=== PATIENT | male | born 1985 | race Caucasian/White ===

== ENCOUNTER 2016-08-29 16:02 | Emergency (ER) | payer OTHER ==
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
[2016-08-29 16:12] VITALS: TEMP 98.5; BMI 34.0
[2016-08-29] MEDS ORDERED: FAMOTIDINE 20 MG/50 ML IVPB 50 ML IVPB ONE ×2 (16:50→16:59)
[2016-08-29 16:56] LABS: BASOPHIL 1.6 % (0-2.0); EOSINOPHIL 4.5 % (0-4.5); MCH 25.9 pg (25.7-33.7); MCHC 32.1 g/dl (32.0-35.9); MEAN CELL VOLUME 80.7 fl (80-96); MEAN PLT VOLUME 9.1 fl (7.5-11.1); NEUTROPHILS 54.5 % (42.8-82.8); PLATELET COUNT 256 K/MM3 (134-434); RDW 12.9 % (11.9-15.9); WHITE BLOOD COUNT 8.7 K/mm3 (4.0-10.0)
[2016-08-29 17:05] LABS: URINE APPEARANCE Clear; URINE BILIRUBIN Negative (NEGATIVE); URINE BLOOD Negative (NEGATIVE); URINE GLUCOSE (UA) Negative (NEGATIVE); URINE KETONE Trace (NEGATIVE); URINE LEUK ESTERASE Negative (NEGATIVE); URINE NITRITE Negative (NEGATIVE); URINE PROTEIN Trace (NEGATIVE); URINE UROBILINOGEN 0.2 E.U/dl (0.2-1.0)
[2016-08-29 17:07] LABS: URINE COLOR YELLOW
[2016-08-29 17:08] LABS: ALBUMIN 4.4 g/dl (3.5-5.0); ALK PHOS 95 U/L (32-92); ANION GAP 11 (8-16); BILIRUBIN,TOTAL 0.9 mg/dl (0.2-1.0); CALCIUM 9.4 mg/dl (8.4-10.2); CO2 24 mmol/L (22-28); CREATININE 0.9 mg/dl (0.6-1.3); GLUCOSE,RANDOM 162 mg/dl (74-106); MAGNESIUM 1.9 mg/dL (1.8-2.4); PHOSPHOROUS 3.3 mg/dl (2.5-4.6); SGOT/AST 66 U/L (10-42); SGPT/ALT 123 U/L (10-40); TOT PROT 7.4 g/dl (6.4-8.3)
[2016-08-29 17:10] LABS: CPK(DFH) 274 IU/L (38-174)
[2016-08-29] MEDS ORDERED: SODIUM CHLORIDE 1,000 ML IV STA (17:10)
[2016-08-29 17:24] LABS: TROPONIN I (DFP) < 0.03 ng/ml (0.03-0.50)
[2016-08-29 17:51] LABS: CK MB 3.9 ng/ml (0.3-4.0)
[2016-08-29 19:21] VITALS: BP 128/77; PULSE 92
--- NOTE | 2016-08-29 19:26 | PDOC ---
*Physical Exam - Vital Signs Last Vital Signs Temp Pulse Resp BP Pulse Ox 98.5 F 92 H 20 128/77 100 08/29/16 16:04 08/29/16 19:20 08/29/16 19:20 08/29/16 19:20 08/29/16 19:20 Heart Score/ECG Review - History History: Slightly suspicious - Electrocardiogram EKG: Normal - Age Age: </= 45 - Risk Factors Risk Factors Heart Score: Yes Hx Hypertension Based on the list above the patient has:: 1-2 risk factors - Troponin Troponin: </= normal limit - Score Heart Score - Total: 1 ED Treatment Course - LABORATORY CBC & Chemistry Diagram: 08/29/16 16:30 08/29/16 16:30 - ADDITIONAL ORDERS Additional order review: Laboratory Results 08/29/16 08/29/16 08/29/16 17:03 16:30 16:30 D-Dimer < 200 Sodium Potassium Chloride Carbon Dioxide Anion Gap BUN Creatinine Creat Clearance w eGFR Random Glucose Calcium Phosphorus Magnesium Total Bilirubin AST ALT Alkaline Phosphatase Creatine Kinase CK-MB (CK-2) Cancelled CK-MB (CK-2) Rel Index Troponin I Total Protein Albumin Lipase Urine Color Yellow Urine Appearance Clear Urine pH 5.0 Ur Specific Guston >= 1.030 H Urine Protein Trace Urine Glucose (UA) Negative Urine Ketones Trace Urine Blood Negative Urine Nitrite Negative Urine Bilirubin Negative Urine Urobilinogen 0.2 e.u/dl Ur Leukocyte Esterase Negative 08/29/16 08/29/16 08/29/16 16:30 16:30 16:25 D-Dimer Sodium 138 Potassium 3.8 Chloride 103 Carbon Dioxide 24 Anion Gap 11 BUN 13 Creatinine 0.9 Creat Clearance w eGFR > 60 Random Glucose 162 H D Calcium 9.4 Phosphorus 3.3 Magnesium 1.9 Total Bilirubin 0.9 D AST 66 H ALT 123 H Alkaline Phosphatase 95 H Creatine Kinase 274 H D CK-MB (CK-2) 3.9 CK-MB (CK-2) Rel Index 1.4 Troponin I < 0.03 L Total Protein 7.4 Albumin 4.4 Lipase 33 Urine Color Urine Appearance Urine pH Ur Specific Guston Urine Protein Urine Glucose (UA) Urine Ketones Urine Blood Urine Nitrite Urine Bilirubin Urine Urobilinogen Ur Leukocyte Esterase 08/29/16 16:30 RBC 5.81 H MCV 80.7 MCHC 32.1 RDW 12.9 MPV 9.1 Neutrophils % 54.5 Lymphocytes % 32.3 Monocytes % 7.1 Eosinophils % 4.5 Basophils % 1.6 - Medications Given in the ED: ED Medications Discontinued Medications Generic Name Dose Route Start Last Admin Trade Name Brigitte PRN Reason Stop Dose Admin Famotidine/Sodium Chloride 50 mls @ 100 mls/hr 08/29/16 16:50 08/29/16 17:02 Pepcid 20 Mg Premixed Ivpb - IVPB 08/29/16 17:19 100 mls/hr ONCE ONE Administration Sodium Chloride 1,000 mls @ 1,000 mls/hr 08/29/16 17:10 08/29/16 17:22 Normal Saline - IV 08/29/16 18:09 1,000 mls/hr ASDIR STA Administration Progress Note - Progress Note Progress Note: This is a 30-year-old male who comes in complaining of some anterior chest pain. Patient has risk factors of hypertension otherwise denies any other risk factors. Patient's heart score is 1. Patient will have a second troponin done at 10 PM. If this troponin is also negative he will be discharged with an overall acute coronary syndrome risk of less than 1%. Patient's second troponin was negative. Patient discharged home will follow-up with his primary care doctor and get an outpatient stress test. *DC/Admit/Observation/Transfer Diagnosis at time of Disposition: Chest pain - Discharge Dispostion Disposition: HOME Condition at time of disposition: Fair Admit: No - Patient Instructions Printed Discharge Instructions: DI for Atypical Chest Pain Additional Instructions: Follow-up with your primary care doctor to make sure you schedule a cardiac stress test.. Tylenol or Motrin as needed for pain Return to the emergency department immediately with ANY new, persistent or worsening symptoms. Continue any medications as previously prescribed by your physician. You should follow up with your primary doctor as soon as possible regarding today's emergency department visit. . Please make sure your doctor reviews the results of your emergency evaluation. Thank you for coming to the Emergency Department today for your care. It was a pleasure to see you today. Please note that your evaluation is INCOMPLETE until you follow-up with your doctor.
[2016-08-29 20:31] LABS: CPK(DFH) 253 IU/L (38-174)
[2016-08-29 20:53] LABS: TROPONIN I (DFP) < 0.03 ng/ml (0.03-0.50)
[2016-08-29 20:56] LABS: CK MB 3.4 ng/ml (0.3-4.0)
--- NOTE | 2016-08-30 09:57 | EKG ---
Test Reason : Blood Pressure : / mmHG Vent. Rate : 113 BPM Atrial Rate : 113 BPM P-R Int : 154 ms QRS Dur : 092 ms QT Int : 344 ms P-R-T Axes : 028 -07 019 degrees QTc Int : 471 ms SINUS TACHYCARDIA POSSIBLE LEFT ATRIAL ENLARGEMENT MINIMAL VOLTAGE CRITERIA FOR LVH, MAY BE NORMAL VARIANT BORDERLINE ECG NO PREVIOUS ECGS AVAILABLE Confirmed by PAN HOFFMAN MD ([id number]) on 08/30/2016 9:57:17 AM Referred By: MD MCCARTHY Confirmed By:PAN HOFFMAN MD
== END 2016-08-29 21:16 | disposition home or self-care (01) ==
LOC: FER 16:02
DX: R07.9 Chest pain, unspecified (principal); J45.909 Unspecified asthma, uncomplicated; I10 Essential (primary) hypertension; E66.01 Morbid (severe) obesity due to excess calories; Z68.35 Body mass index [BMI] 35.0-35.9, adult
CPT/HCPCS: 36415; 71010-TC; 80053; 81003; 82550; 82553; 83690; 83735; 84100; 84443; 84484; 85025; 85379; 93005; 99283-25

== ENCOUNTER 2016-08-30 11:50 | Emergency (ER) | payer OTHER ==
[2016-08-30 11:57] VITALS: BMI 38.4
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
[2016-08-30 13:44] VITALS: BP 128/74; PULSE 70; TEMP 98.6
--- NOTE | 2016-08-30 22:55 | EKG ---
Test Reason : Blood Pressure : / mmHG Vent. Rate : 074 BPM Atrial Rate : 074 BPM P-R Int : 136 ms QRS Dur : 090 ms QT Int : 380 ms P-R-T Axes : 023 -02 025 degrees QTc Int : 421 ms NORMAL SINUS RHYTHM WITH SINUS ARRHYTHMIA NORMAL ECG WHEN COMPARED WITH ECG OF 29-AUG-2016 16:16, VENT. RATE HAS DECREASED BY 39 BPM Confirmed by RENE GUERIN MD ([id number]) on 08/30/2016 10:55:15 PM Referred By: Confirmed By:RENE GUERIN MD
== END 2016-08-30 13:25 | disposition home or self-care (01) ==
LOC: JER 11:50
DX: F41.9 Anxiety disorder, unspecified (principal); J45.909 Unspecified asthma, uncomplicated; I10 Essential (primary) hypertension
CPT/HCPCS: 93005; 93010; 99284-25

== ENCOUNTER 2016-09-06 21:07 | Emergency (ER) | payer OTHER ==
[2016-09-06 21:13] VITALS: BP 123/80; PULSE 80; TEMP 98.1; BMI 38.4
--- NOTE | 2016-09-06 21:15 | PDOC ---
History of Present Illness - General History Source: Patient Exam Limitations: No Limitations - History of Present Illness Initial Comments: 09/06/16 21:28 The patient is a 30 year old male, with significant past medical history of anxiety, asthma, HTN, who presents today seeking a refill of Wellbutrin. The patient states that he ran out of Wellbutrin about 1 month ago. The patient spoke with his therapist today who agrees that he can start taking Wellbutrin for his anxiety again. He has an appointment with his therapist on Sunday, but would like a prescription to hold him over until then. The patient also complains of an ear infection for which he is already taking amoxicillin for. Denies fever, chills, nausea, vomiting. Denies chest pain, SOB, cough. Allergies: None reported ROS General: No fevers or chills, no weakness, no weight loss HEENT: +left ear pain. No change in vision. No sore throat,. No ear pain CardioVascular: No chest pain or shortness of breath Respiratory:No cough, or wheezing. Gastrointestinal: no nausea, vomiting, diarrhea or constipation, No rectal bleeding Genitourinary: No dysuria, hematuria, or frequency Musculoskeletal: No joint or muscle pain or swelling Neurologic: No headache, vertigo, dizziness or loss of consciousness Psychiatric: +anxiety Skin: No rashes or easy bruising Endocrine: no increased thirst or abnormal weight change Allergic: no skin or latex allergy All other systems reviewed and normal PE GENERAL: The patient is awake, alert, and fully oriented, in no acute distress. EYES: Pupils equal, round and reactive to light, extraocular movements intact, sclera anicteric, conjunctiva clear. LEFT EAR: Tympanic membrane normal. Excess cerumen in the external canal. EXTREMITIES: Normal range of motion, no edema. NEUROLOGICAL: Normal speech, normal gait. PSYCH: Normal mood, normal affect. SKIN: Warm, Dry, normal turgor, no rashes or lesions noted. <Blossom Bonilla - Last Filed: 09/06/16 21:28> - General History Source: Patient Exam Limitations: No Limitations - History of Present Illness Initial Comments: 09/06/16 21:22 A portion of this note was documented by scribe services under my direction. I have reviewed the details of the note, within reason, and agree with the documentation. The case summary and management plan written by me. Assessment and plan: This is a 30-year-old male with a history of anxiety who has had 3 visits in the last several days for anxiety related type complaints. Patient decided he should go back on his Wellbutrin today however he is out of the medication so he came in for a prescription for the Wellbutrin. Patient has not taken it in approximately 1 week and does have an appointment with his therapist for Sunday. Patient was told by his therapist he most likely should be started Wellbutrin secondary to his anxiety attacks. <Salvatore Childress I - Last Filed: 09/06/16 22:04> - General Chief Complaint: RX Refill Stated Complaint: MED REFILL Time Seen by Provider: 09/06/16 21:10 Past History <Blossom Bonilla - Last Filed: 09/06/16 21:28> - Past Medical History Asthma: Yes (childhood) HTN: Yes Suicide Attempt (Hx): No - Immunization History Immunization Up to Date: Yes - Psycho/Social/Smoking Cessation Hx Anxiety: No Suicidal Ideation: No Smoking History: Never smoked Have you smoked in the past 12 months: No Hx Alcohol Use: No Drug/Substance Use Hx: No Substance Use Type: None <Salvatore Childress I - Last Filed: 09/06/16 22:04> - Past Medical History Allergies/Adverse Reactions: Allergies Allergy/AdvReac Type Severity Reaction Status Date / Time No Known Allergies Allergy Verified 09/06/16 21:09 Home Medications: Ambulatory Orders Oxycodone HCl [Oxycodone HCl ER] 15 mg PO ASDIR PRN 05/25/16 Bupropion HCl [Wellbutrin -] 75 mg PO DAILY 09/06/16 Bupropion HCl [Wellbutrin -] 75 mg PO DAILY #7 tablet 09/06/16 Gabapentin 0 mg PO DAILY 09/06/16 Trazodone HCl 0 mg PO HS 09/06/16 *Physical Exam - Vital Signs Last Vital Signs Temp Pulse Resp BP Pulse Ox 98.1 F 80 16 123/80 100 09/06/16 21:07 09/06/16 21:07 09/06/16 21:07 09/06/16 21:07 09/06/16 21:07 <Blossom Bonilla - Last Filed: 09/06/16 21:28> *DC/Admit/Observation/Transfer - Attestations Scribe Attestion: 09/06/16 21:30 Documentation prepared by XENA Tamayo, acting as medical record transcriber for Salvatore Childress MD. <Blossom Bonilla - Last Filed: 09/06/16 21:28> - Discharge Dispostion Admit: No <Salvatore Childress I - Last Filed: 09/06/16 22:04> Diagnosis at time of Disposition: Medication refill - Discharge Dispostion Disposition: HOME Condition at time of disposition: Stable - Prescriptions Prescriptions: Bupropion HCl [Wellbutrin -] 75 mg PO DAILY #7 tablet - Patient Instructions Additional Instructions: Get the prescription for Wellbutrin filled and take as directed. Make sure you keep your appointment with your therapist on Sunday Return to the emergency department immediately with ANY new, persistent or worsening symptoms. Continue any medications as previously prescribed by your physician. You should follow up with your primary doctor as soon as possible regarding today's emergency department visit. . Please make sure your doctor reviews the results of your emergency evaluation. Thank you for coming to the Emergency Department today for your care. It was a pleasure to see you today. Please note that your evaluation is INCOMPLETE until you follow-up with your doctor.
== END 2016-09-06 21:28 | disposition home or self-care (01) ==
LOC: FER 21:07
DX: Z76.0 Encounter for issue of repeat prescription (principal); I10 Essential (primary) hypertension; J45.909 Unspecified asthma, uncomplicated
CPT/HCPCS: 99281-25

== ENCOUNTER 2016-09-07 14:52 | Emergency (ER) | payer OTHER ==
[2016-09-07 15:07] VITALS: BP 136/87; PULSE 98; TEMP 98; BMI 38.3
--- NOTE | 2016-09-07 15:22 | PDOC ---
History of Present Illness - General Chief Complaint: Palpitations Stated Complaint: PALPITATIONS Time Seen by Provider: 09/07/16 14:56 - History of Present Illness Initial Comments: 09/07/16 15:15 Chief complaint: Pain left shoulder and left upper back History of present illness: Patient states he was putting away some boxes in his cupboard today, felt a tightness in his left shoulder and left upper back, he states that he has a pinched nerve in his neck for 2 years with intermittent pain in the same areas and in his left arm. He is on disability for this condition which was subsequent to an injury. There has been no recent trauma. He also has a history of anxiety, and feels considerable stress due to taking care of 2 children at home, the older of which has behavioral problems and is in the process of seeking therapy. Review of systems: Admits "palpitations" after feeling the initial pain, these have resolved as well. Remainder systems review is negative Past medical history: The patient had a cardiology evaluation and stress test within the last week which he reports were negative. He has mild hypertension but is on no antihypertensive. There are no other risk factors. Physical exam: Alert and oriented 3 well-developed well-nourished no acute distress cheerful and cooperative. No pain at present. Afebrile, vital signs normal PERRLA, fundi benign, ENT clear Neck supple without bruit mass or nodes. No point tenderness or deformity. Good range of motion without pain Lungs clear No chest wall or rib cage tenderness or deformity, although there is trigger point tenderness along the left lateral scapular border CV S1 and S2 normal without murmur or gallop pulses full and symmetric no JVD or edema Abdomen benign Neurological intact Impression: Exacerbation of cervical radiculopathy, anxiety, no suggestion of cardiac etiology, no suggestion of pulmonary etiology. Recent ER and cardiology evaluations including stress test reportedly negative Plan: Repeat EKG. Further recommendations depending on results. Past History - Past Medical History Allergies/Adverse Reactions: Allergies Allergy/AdvReac Type Severity Reaction Status Date / Time No Known Allergies Allergy Verified 09/06/16 21:09 Home Medications: Ambulatory Orders Oxycodone HCl [Oxycodone HCl ER] 15 mg PO ASDIR PRN 05/25/16 Gabapentin 0 mg PO DAILY 09/06/16 Aspirin [Aspirin EC] 81 mg PO ONCE 09/07/16 Bupropion HCl [Wellbutrin -] 75 mg PO DAILY #7 tablet 09/07/16 Cyclobenzaprine HCl [Flexeril -] 10 mg PO TID PRN 09/07/16 Asthma: Yes (childhood) HTN: Yes Psychiatric Problems: Yes Suicide Attempt (Hx): No Other medical history: BACK PAIN - Immunization History Immunization Up to Date: Yes - Psycho/Social/Smoking Cessation Hx Anxiety: Yes Suicidal Ideation: No Smoking History: Never smoked Have you smoked in the past 12 months: No Hx Alcohol Use: No Drug/Substance Use Hx: No Substance Use Type: None *Physical Exam - Vital Signs Last Vital Signs Temp Pulse Resp BP Pulse Ox 98.0 F 98 H 18 136/87 98 09/07/16 14:53 09/07/16 14:53 09/07/16 14:53 09/07/16 14:53 09/07/16 14:53 Medical Decision Making - Medical Decision Making 09/07/16 15:22 EKG: Mild sinus tachycardia 101 bpm. Normal axes and intervals. No ST-T wave changes. Otherwise normal EKG 09/07/16 15:37 Patient requests refill of his Wellbutrin 75 mg daily. A referral that was given last night did not transmit to the pharmacy. Attempts to be transmit the original order were not successful. Therefore a new prescription was sent today for 7 day supply. Patient is asymptomatic and fully ambulatory, in no pain or other distress upon discharge with family member to follow-up as needed with his primary physician and public health analyst. *DC/Admit/Observation/Transfer Diagnosis at time of Disposition: Musculoskeletal pain, Anxiety - Discharge Dispostion Disposition: HOME Condition at time of disposition: Stable Admit: No - Prescriptions Prescriptions: Bupropion HCl [Wellbutrin -] 75 mg PO DAILY #7 tablet - Referrals Referrals: Aimee Prado MD [Primary Care Provider] - 24 hours - Patient Instructions Printed Discharge Instructions: DI for Lumbar Radiculopathy, DI for Anxiety -- Adult Additional Instructions: Your EKG and physical exam are normal today. Your symptoms are most likely due to your pinched nerve and to stress/anxiety. Take your medication as directed. Consider relaxation techniques and stress counseling. If your pain is worse or you develop any other symptoms return to the ER or see your primary physician immediately
--- NOTE | 2016-09-08 11:11 | EKG ---
Test Reason : Blood Pressure : / mmHG Vent. Rate : 101 BPM Atrial Rate : 101 BPM P-R Int : 154 ms QRS Dur : 090 ms QT Int : 352 ms P-R-T Axes : 021 -10 017 degrees QTc Int : 456 ms SINUS TACHYCARDIA POOR R WAVE PROGRESSION WHEN COMPARED WITH ECG OF 30-AUG-2016 11:56, NO SIGNIFICANT CHANGE WAS FOUND Confirmed by SHANTI TAI MD ([id number]) on 09/08/2016 11:11:21 AM Referred By: Marlon ELI Confirmed By:SHANTI TAI MD
== END 2016-09-07 15:40 | disposition home or self-care (01) ==
LOC: FER 14:52
DX: M79.1 Myalgia (principal); F41.9 Anxiety disorder, unspecified; F99 Mental disorder, not otherwise specified; I10 Essential (primary) hypertension; J45.909 Unspecified asthma, uncomplicated
CPT/HCPCS: 93005; 99284-25

== ENCOUNTER 2016-09-15 22:35 | Emergency (ER) | payer OTHER ==
--- NOTE | 2016-09-15 22:58 | PDOC ---
History of Present Illness - General Chief Complaint: Chest Pain Stated Complaint: CHEST TIGHTNESS Time Seen by Provider: 09/15/16 22:39 History Source: Patient, Old Records Exam Limitations: No Limitations - History of Present Illness Initial Comments: 09/15/16 22:53 30 Y M anxiety, "pinched nerve in neck" multiple visit s to er for different complaints. has been seen by ENT yesterday and had prior stress test for his symptoms. comes to er w. sensation of something in his throat for which his ent told him today it was his tonsils. also c/o lt sided chest pain "muscle tightness" which he has had before and was told it was a pinched nerve. pt sts "i know is the same as before but i got nervous" no sob, n/v. no palpitations. in nad. Past History - Past Medical History Allergies/Adverse Reactions: Allergies Allergy/AdvReac Type Severity Reaction Status Date / Time No Known Allergies Allergy Verified 09/06/16 21:09 Home Medications: Ambulatory Orders Oxycodone HCl [Oxycodone HCl ER] 15 mg PO ASDIR PRN 05/25/16 Gabapentin 0 mg PO DAILY 09/06/16 Aspirin [Aspirin EC] 81 mg PO ONCE 09/07/16 Bupropion HCl [Wellbutrin -] 75 mg PO DAILY #7 tablet 09/07/16 Cyclobenzaprine HCl [Flexeril -] 10 mg PO TID PRN 09/07/16 Asthma: Yes (childhood) HTN: Yes Psychiatric Problems: Yes Suicide Attempt (Hx): No - Immunization History Immunization Up to Date: Yes - Psycho/Social/Smoking Cessation Hx Anxiety: Yes Suicidal Ideation: No Smoking History: Never smoked Have you smoked in the past 12 months: No Hx Alcohol Use: No Drug/Substance Use Hx: No Substance Use Type: None Review of Systems - Review of Systems Able to Perform ROS?: Yes Is the patient limited Palauan proficient: No Constitutional: Yes: Symptoms Reported, See HPI HEENTM: Yes: Symptoms Reported, See HPI Respiratory: No: Symptoms reported Cardiac (ROS): No: Symptoms Reported ABD/GI: No: Symptoms Reported Musculoskeletal: Yes: Symptoms Reported, See HPI Psychiatric: Yes: Anxiety All Other Systems: Reviewed and Negative *Physical Exam - Physical Exam General Appearance: Yes: Nourished, Appropriately Dressed. No: Apparent Distress Neck: positive: Supple Respiratory/Chest: negative: Respiratory Distress Cardiovascular: positive: Regular Rhythm, Regular Rate Extremity: positive: Normal Capillary Refill, Normal Range of Motion Integumentary: positive: Normal Color Neurologic: positive: Fully Oriented, Alert, Normal Mood/Affect, Normal Response , Motor Strength 5/5 *DC/Admit/Observation/Transfer Diagnosis at time of Disposition: Anxiety - Discharge Dispostion Disposition: HOME Condition at time of disposition: Good - Referrals Referrals: Aimee Prado MD [Primary Care Provider] - Call tomorrow - Patient Instructions Additional Instructions: see your psychiatrist sunday relaxation techniques as instructed return if new symptoms
[2016-09-15 23:13] VITALS: BP 140/93; PULSE 86; TEMP 98; BMI 38.3
[2016-09-27] MEDS ORDERED: RANITIDINE HCL 150 MG TABLET (FP) ONE (21:05)
[2016-09-27] MEDS ORDERED: MAG HYDROX/AL HYDROX/SIMETH 30 ML UNIT-DOSE CUP ONE (21:05)
== END 2016-09-15 23:07 | disposition home or self-care (01) ==
LOC: FER 22:35
DX: F41.9 Anxiety disorder, unspecified (principal); I10 Essential (primary) hypertension; J45.909 Unspecified asthma, uncomplicated; F99 Mental disorder, not otherwise specified
CPT/HCPCS: 99281-25

== ENCOUNTER 2016-09-20 04:46 | Emergency (ER) | payer OTHER ==
--- NOTE | 2016-09-20 04:52 | PDOC ---
History of Present Illness - General Chief Complaint: Pain, Acute Stated Complaint: LEFT GROIN PAIN Time Seen by Provider: 09/20/16 04:47 History Source: Patient, Old Records Exam Limitations: No Limitations - History of Present Illness Initial Comments: 09/20/16 04:47 30 Y M multiple visits to er, presents today c/o inguinal pain. sts has a hernia but has not gotten it fixed. no fever, n/v. no abd pain. has not taken pain medications. in the ed, in nad. Past History - Past Medical History Allergies/Adverse Reactions: Allergies Allergy/AdvReac Type Severity Reaction Status Date / Time No Known Allergies Allergy Verified 09/20/16 04:47 Home Medications: Ambulatory Orders Oxycodone HCl [Oxycodone HCl ER] 15 mg PO ASDIR PRN 05/25/16 Gabapentin 0 mg PO DAILY 09/06/16 Aspirin [Aspirin EC] 81 mg PO ONCE 09/07/16 Bupropion HCl [Wellbutrin -] 75 mg PO DAILY #7 tablet 09/07/16 Cyclobenzaprine HCl [Flexeril -] 10 mg PO TID PRN 09/07/16 Asthma: Yes (childhood) HTN: Yes Psychiatric Problems: Yes Suicide Attempt (Hx): No - Immunization History Immunization Up to Date: Yes - Psycho/Social/Smoking Cessation Hx Anxiety: Yes Suicidal Ideation: No Smoking History: Never smoked Have you smoked in the past 12 months: No Hx Alcohol Use: No Drug/Substance Use Hx: No Substance Use Type: None Review of Systems - Review of Systems Able to Perform ROS?: Yes Is the patient limited Khmer proficient: No Constitutional: No: Symptoms Reported HEENTM: No: Symptoms Reported Respiratory: No: Symptoms reported Cardiac (ROS): No: Symptoms Reported ABD/GI: Yes: Symptoms Reported, See HPI : No: Symptoms Reported Musculoskeletal: No: Symptoms Reported Integumentary: No: Symptoms Reported *Physical Exam - Physical Exam General Appearance: Yes: Nourished, Appropriately Dressed. No: Apparent Distress Respiratory/Chest: positive: Lungs Clear, Normal Breath Sounds. negative: Respiratory Distress Cardiovascular: positive: Regular Rhythm, Regular Rate Gastrointestinal/Abdominal: positive: Normal Bowel Sounds, Soft, Hernia (lt inguinal hernia in scrotum not incarcerated. not tender. no erythema). negative: Tender Male Genitalia: positive: normal genitalia, hernia (see above) Musculoskeletal: positive: Normal Inspection Integumentary: positive: Normal Color Neurologic: positive: Fully Oriented, Alert, Normal Mood/Affect, Normal Response , Motor Strength 5/5 *DC/Admit/Observation/Transfer Diagnosis at time of Disposition: Hernia - Discharge Dispostion Disposition: HOME Condition at time of disposition: Stable - Patient Instructions Additional Instructions: IBUPROFEN FOR PAIN CALL YOUR DOCTOR FOR APPOINTMENT RETURN IF VOMITING OR SEVERE PAIN
[2016-09-20 04:54] VITALS: BP 141/96; PULSE 76; TEMP 97.8; BMI 34.0
== END 2016-09-20 04:58 | disposition home or self-care (01) ==
LOC: FER 04:46
DX: K46.9 Unspecified abdominal hernia without obstruction or gangrene (principal); I10 Essential (primary) hypertension; J45.909 Unspecified asthma, uncomplicated; F99 Mental disorder, not otherwise specified; Z79.82 Long term (current) use of aspirin
CPT/HCPCS: 99281-25

== ENCOUNTER 2016-09-27 20:46 | Emergency (ER) | payer OTHER ==
[2016-09-27] MEDS ORDERED: RANITIDINE HCL 150 MG TABLET (FP) PO ONE (21:03)
[2016-09-27] MEDS ORDERED: MAG HYDROX/AL HYDROX/SIMETH 30 ML UNIT-DOSE CUP PO ONE (21:03)
--- NOTE | 2016-09-27 21:05 | PDOC ---
History of Present Illness <Harley Limon - Last Filed: 09/27/16 21:09> - History of Present Illness Initial Comments: 09/27/16 21:07 - History of Present Illness Initial Comments: 09/27/16 21:06 The patient is a 30 year old male, with a significant past medical history of anxiety, asthma, and HTN, herniated lumbar disc (s/p recent fall), shoulder tear and knee tear (s/p recent fall) who presents to the emergency department with feeling of reflux after eating pasta and sausage and peppers. The patient reports having a chest pressure after eating pasta with peppers, just prior to ER arrival. He describes the pressure as a gassy feeling and having urges to burp without being able to burp. He felt like the food was "going up and down", and then did have some relief after burping He denies any recent fevers, chills, headache or dizziness. He denies any recent abdominal pain, nausea, vomit, diarrhea or constipation. He denies any recent shortness of breath. He denies any recent dysuria, frequency, urgency or hematuria. He denies any other complaints at this time, and the remainder of the review of systems is negative Allergies: NKDA Past surgical history: denies Social History: Nonsmoker. <Harley Limon - Last Filed: 09/27/16 21:06> 09/27/16 21:07 <Leah Davis - Last Filed: 09/27/16 21:55> - General Chief Complaint: Pain Stated Complaint: FEELS LIKE ACID REFLUS AFTER EATING PASTA Time Seen by Provider: 09/27/16 20:52 Past History <Harley Limon - Last Filed: 09/27/16 21:09> - Past Medical History Asthma: Yes (childhood) HTN: Yes Psychiatric Problems: Yes Suicide Attempt (Hx): No Other medical history: CHRONIC BACK PAIN AND PINCHED NERVE - Immunization History Immunization Up to Date: Yes - Psycho/Social/Smoking Cessation Hx Anxiety: Yes Suicidal Ideation: No Smoking History: Never smoked Have you smoked in the past 12 months: No Information on smoking cessation initiated: No Hx Alcohol Use: No Drug/Substance Use Hx: No Substance Use Type: None <Leah Davis - Last Filed: 09/27/16 21:55> - Past Medical History Allergies/Adverse Reactions: Allergies Allergy/AdvReac Type Severity Reaction Status Date / Time No Known Allergies Allergy Verified 09/27/16 20:49 Home Medications: Ambulatory Orders Oxycodone HCl [Oxycodone HCl ER] 15 mg PO ASDIR PRN 05/25/16 Gabapentin 300 mg PO DAILY 09/06/16 Aspirin [Aspirin EC] 81 mg PO ONCE 09/07/16 *Physical Exam - Vital Signs Last Vital Signs Temp Pulse Resp BP Pulse Ox 98.7 F 88 18 145/88 99 09/27/16 20:50 09/27/16 20:50 09/27/16 20:50 09/27/16 20:50 09/27/16 20:50 <Harley Limon - Last Filed: 09/27/16 21:09> - Vital Signs Last Vital Signs Temp Pulse Resp BP Pulse Ox 98.7 F 88 18 145/88 99 09/27/16 20:50 09/27/16 20:50 09/27/16 20:50 09/27/16 20:50 09/27/16 20:50 - Physical Exam Comments: 09/27/16 21:04 Physical exam Last Vital Signs Temp Pulse Resp BP Pulse Ox 98.7 F 88 18 145/88 99 09/27/16 20:50 09/27/16 20:50 09/27/16 20:50 09/27/16 20:50 09/27/16 20:50 GENERAL: The patient is awake, alert, and fully oriented, and in no apparent distress. HEAD: Normal with no signs of trauma. EYES: Sclera anicteric, conjunctiva normal ENT:Moist mucous membranes. NECK: Normal range of motion, supple LUNGS: Breath sounds equal, clear to auscultation bilaterally. No wheezes, and no crackles. HEART: Regular rate and rhythm, normal S1 and S2 without murmur, rub or gallop. CHEST WALL: Mild tenderness to palpation to will ABDOMEN: Soft, nontender, normoactive bowel sounds. No guarding, no rebound. No masses appreciated. EXTREMITIES: Normal range of motion, no edema. No clubbing or cyanosis. No cords, erythema, or tenderness. NEUROLOGICAL: Cranial nerves II through XII grossly intact. Normal speech, normal gait. PSYCH: Normal mood, normal affect. SKIN: Warm, Dry, normal turgor, no rashes or lesions noted. <Leah Davis - Last Filed: 09/27/16 21:55> ED Treatment Course - RADIOLOGY Radiology Studies Ordered: Category Date Time Status CHEST PA & LAT [RAD] Stat Radiology 09/27/16 21:03 Ordered <Leah Davis - Last Filed: 09/27/16 21:55> Medical Decision Making - Medical Decision Making 09/27/16 21:53 30-year-old male with GERD sounding symptoms after eating pasta and fried sausage and peppers He is also morbidly obese Patient feeling much better after Maalox and Zantac Chest [id number] sinus rhythm 71 normal axis Normal AV and IV conduction time Normal QTC Normal EKG Chest x-ray PA and lateral-NAD Impression-GERD <Leah Davis - Last Filed: 09/27/16 21:55> *DC/Admit/Observation/Transfer <Harley Limon - Last Filed: 09/27/16 21:09> <Leah Davis - Last Filed: 09/27/16 21:55> Diagnosis at time of Disposition: Gastroesophageal reflux disease - Discharge Dispostion Disposition: HOME Condition at time of disposition: Improved - Patient Instructions Printed Discharge Instructions: DI for Gastroesophageal Reflux Disease (GERD), GERD Diet, Heartburn -- Overview Additional Instructions: Do not eat fried, greasy, or spicy foods Pepcid or Zantac [id number]-you can take one pill twice a day Maalox if needed when you are symptomatic Followup with your primary care physician in 24-48 hours Return immediately if you worsen in any way Take your medications as directed
[2016-09-27 21:49] VITALS: BP 145/88; PULSE 88; TEMP 98.7; BMI 35.4
--- NOTE | 2016-09-28 18:09 | EKG ---
Test Reason : Blood Pressure : / mmHG Vent. Rate : 071 BPM Atrial Rate : 071 BPM P-R Int : 154 ms QRS Dur : 102 ms QT Int : 386 ms P-R-T Axes : 030 -09 025 degrees QTc Int : 419 ms NORMAL SINUS RHYTHM NON-SPECIFIC INTRA-VENTRICULAR CONDUCTION BLOCK WHEN COMPARED WITH ECG OF 27-SEP-2016 21:24, NO SIGNIFICANT CHANGE WAS FOUND Confirmed by MD GODWIN MARJORY ([id number]) on 09/28/2016 6:08:58 PM Referred By: MD STARR Confirmed By:ANABELLA GODWIN MD
--- NOTE | 2016-09-28 18:09 | EKG ---
Test Reason : Blood Pressure : / mmHG Vent. Rate : 071 BPM Atrial Rate : 071 BPM P-R Int : 140 ms QRS Dur : 102 ms QT Int : 384 ms P-R-T Axes : 024 -06 026 degrees QTc Int : 417 ms NORMAL SINUS RHYTHM NON-SPECIFIC INTRA-VENTRICULAR CONDUCTION BLOCK WHEN COMPARED WITH ECG OF 07-SEP-2016 15:20, NO SIGNIFICANT CHANGE WAS FOUND Confirmed by MD GODWIN MARJORY ([id number]) on 09/28/2016 6:09:11 PM Referred By: MD STARR Confirmed By:ANABELLA GODWIN MD
== END 2016-09-27 22:23 | disposition home or self-care (01) ==
LOC: FER 20:46
DX: K21.9 Gastro-esophageal reflux disease without esophagitis (principal); F41.9 Anxiety disorder, unspecified; J45.909 Unspecified asthma, uncomplicated; I10 Essential (primary) hypertension; M51.86 Other intervertebral disc disorders, lumbar region
CPT/HCPCS: 71020-TC; 93005; 93010; 99282-25

== ENCOUNTER 2017-02-22 12:49 | Emergency (ER) | payer OTHER ==
--- NOTE | 2017-02-22 12:57 | PDOC ---
Attending Attestation - Resident Resident Name: Hernán Espinozaorn - ED Attending Attestation I have performed the following: I have examined & evaluated the patient, The case was reviewed & discussed with the resident, I agree w/resident's findings & plan, Exceptions are as noted - HPI HPI: 02/22/17 14:48 Chronic pain for 1-2 years as a result of falling on ice. Numerous MRIs in the past. Physical therapy and pain management. Seen today because of new pain in the left anterior shoulder, mild but recurrent, present only with certain movements - Physicial Exam PE: 02/22/17 14:49 Physical exam including complete neurologic including cardiac /respiratory without significant abnormalities. Reproducible pain with palpation of the anterior shoulder, specifically the coracoid. This probably represents a mild tendinitis. - Medical Decision Making 02/22/17 14:52 Assessment is musculoskeletal pain acute superimposed on chronic. Although the acute time frame is 3 months. Discussed pain management options, the desirability of staying as active as possible, and the patient will follow up with his primary physician. Fully ambulatory, cheerful and in no significant pain or other distress upon discharge to follow-up as directed.
[2017-02-22 13:15] VITALS: BP 131/87; PULSE 72; TEMP 98.2; BMI 32.5
--- NOTE | 2017-02-22 13:58 | PDOC ---
History of Present Illness - General Chief Complaint: Pain Stated Complaint: PAIN TO UPPER LEFT CHEST WALL ON PALPATION Time Seen by Provider: 02/22/17 12:56 - History of Present Illness Initial Comments: 02/22/17 14:47 See resident note Past History - Past Medical History Allergies/Adverse Reactions: Allergies Allergy/AdvReac Type Severity Reaction Status Date / Time No Known Allergies Allergy Verified 09/27/16 20:49 Home Medications: Ambulatory Orders Oxycodone HCl [Oxycodone HCl ER] 15 mg PO ASDIR PRN 05/25/16 Gabapentin 300 mg PO DAILY 09/06/16 Asthma: Yes (childhood) HTN: No Psychiatric Problems: Yes (DEPRESSION) Suicide Attempt (Hx): No Other medical history: CARPAL TUNNEL - Immunization History Immunization Up to Date: Yes - Psycho/Social/Smoking Cessation Hx Anxiety: Yes Suicidal Ideation: No Smoking History: Never smoked Have you smoked in the past 12 months: No Information on smoking cessation initiated: No Hx Alcohol Use: No Drug/Substance Use Hx: No Substance Use Type: None *Physical Exam - Vital Signs Last Vital Signs Temp Pulse Resp BP Pulse Ox 98.2 F 72 16 131/87 99 02/22/17 12:52 02/22/17 12:52 02/22/17 12:52 02/22/17 12:52 02/22/17 12:52 *DC/Admit/Observation/Transfer Diagnosis at time of Disposition: Musculoskeletal pain - Discharge Dispostion Disposition: HOME Condition at time of disposition: Stable Admit: No - Referrals Referrals: Feliz Jones MD [Staff Physician] - - Patient Instructions Printed Discharge Instructions: DI for Musculoskeletal Pain
--- NOTE | 2017-02-22 14:06 | PDOC ---
History of Present Illness - General Chief Complaint: Pain Stated Complaint: PAIN TO UPPER LEFT CHEST WALL ON PALPATION Time Seen by Provider: 02/22/17 12:56 - History of Present Illness Initial Comments: 02/22/17 14:01 Mr. Kidd is a 31 year old male with a reported significant past medical history of ruptured lumbar discs x2, L wrist carpal tunnel, R knee tear, L shoulder tear, and L arm nerve pain all resulting from a fall on ice in 2014. He presents to the emergency department with a several month history of pain from these injuries as well as throat discomfort for which he has seen ENT and requested to follow-up. The patient denies chest pain, shortness of breath, headache and dizziness. Denies fever, chills, nausea, vomit, diarrhea and constipation. Denies dysuria, frequency, urgency and hematuria. Allergies: NKDA Past surgical history: Groin hernia repair Social history: Denies alcohol / tobacco / illicit drug use PMD - Dr. Mone Prado Past History - Past Medical History Allergies/Adverse Reactions: Allergies Allergy/AdvReac Type Severity Reaction Status Date / Time No Known Allergies Allergy Verified 09/27/16 20:49 Home Medications: Ambulatory Orders Oxycodone HCl [Oxycodone HCl ER] 15 mg PO ASDIR PRN 05/25/16 Gabapentin 300 mg PO DAILY 09/06/16 Asthma: Yes (childhood) HTN: No Psychiatric Problems: Yes (DEPRESSION) Suicide Attempt (Hx): No Other medical history: CARPAL TUNNEL - Immunization History Immunization Up to Date: Yes - Psycho/Social/Smoking Cessation Hx Anxiety: Yes Suicidal Ideation: No Smoking History: Never smoked Have you smoked in the past 12 months: No Information on smoking cessation initiated: No Hx Alcohol Use: No Drug/Substance Use Hx: No Substance Use Type: None Review of Systems - Review of Systems Comments:: 02/22/17 14:06 GENERAL/CONSTITUTIONAL: No fever or chills. No weakness. HEAD, EYES, EARS, NOSE AND THROAT: No change in vision. No ear pain or discharge. No sore throat. CARDIOVASCULAR: No chest pain or shortness of breath RESPIRATORY: No cough, wheezing, or hemoptysis. GASTROINTESTINAL: No nausea, vomiting, diarrhea or constipation. GENITOURINARY: No dysuria, frequency, or change in urination. MUSCULOSKELETAL: +Reported back, shoulder, wrist, R knee pain for several months /years. SKIN: No rash NEUROLOGIC: No headache, vertigo, loss of consciousness, or change in strength/ sensation. ENDOCRINE: No increased thirst. No abnormal weight change HEMATOLOGIC/LYMPHATIC: No anemia, easy bleeding, or history of blood clots. ALLERGIC/IMMUNOLOGIC: No hives or skin allergy. 02/22/17 14:07 *Physical Exam - Vital Signs Last Vital Signs Temp Pulse Resp BP Pulse Ox 98.2 F 72 16 131/87 99 02/22/17 12:52 02/22/17 12:52 02/22/17 12:52 02/22/17 12:52 02/22/17 12:52 - Physical Exam Comments: 02/22/17 14:07 GENERAL: Awake, alert, and fully oriented, in no acute distress HEAD: No signs of trauma, normocephalic, atraumatic EYES: PERRLA, EOMI, sclera anicteric, conjunctiva clear ENT: Auricles normal inspection, hearing grossly normal, nares patent, oropharynx clear without exudates. Moist mucosa NECK: Normal ROM, supple, no lymphadenopathy, JVD, or masses LUNGS: No distress, speaks full sentences, clear to auscultation bilaterally HEART: Regular rate and rhythm, normal S1 and S2, no murmurs, rubs or gallops, peripheral pulses normal and equal bilaterally. ABDOMEN: Soft, nontender, normoactive bowel sounds. No guarding, no rebound. No masses EXTREMITIES: Normal inspection, Normal range of motion, no edema. No clubbing or cyanosis. NEUROLOGICAL: Cranial nerves II through XII grossly intact. Normal speech, normal gait, no focal sensorimotor deficits SKIN: Warm, Dry, normal turgor, no rashes or lesions noted. 02/22/17 14:08 Medical Decision Making - Medical Decision Making 02/22/17 14:08 Mr. Kidd presents "to get checked out" requesting that we do an MRI on him. He reports that he has no new symptoms but on the urging of his friends thought that he should come in for a "quick MRI." Counseled patient on proper procedure for working with PCP to schedule any needed diagnostic tests, as well as the need to follow up with individual specialists for chronic specific issues. *DC/Admit/Observation/Transfer Diagnosis at time of Disposition: Musculoskeletal pain - Discharge Dispostion Disposition: HOME Condition at time of disposition: Stable - Referrals Referrals: Feliz Jones MD [Staff Physician] - - Patient Instructions Printed Discharge Instructions: DI for Musculoskeletal Pain - Post Discharge Activity - Attestations Physician Attestion: 02/22/17 14:08 I, Dr. Cesar Espinoza, attest that this document has been prepared under my direction and personally reviewed by me in its entirety. I further attest, that it accurately reflects all work, treatment, procedures and medical decision -making performed by me.
== END 2017-02-22 14:07 | disposition home or self-care (01) ==
LOC: FER 12:49
DX: M79.1 Myalgia (principal)
CPT/HCPCS: 99282-25

== ENCOUNTER 2017-04-08 18:08 | Emergency (ER) | payer BC, OTHER ==
[2017-04-08 18:24] VITALS: BP 149/97; PULSE 66; TEMP 98.1; BMI 32.5
[2017-04-08] MEDS ORDERED: SODIUM CHLORIDE 1,000 ML IV STA (19:29)
[2017-04-08] MEDS ORDERED: METOCLOPRAMIDE HCL INJECTION 10 MG/2 ML VIAL IVPB ONE (19:29)
[2017-04-08] MEDS ORDERED: ACETAMINOPHEN 1000 MG/100 ML VIAL (NON FORMULARY) IVPB ONE (19:29)
[2017-04-08] MEDS ORDERED: ACETAMINOPHEN INJECTION 100 ML IVPB ONE (19:34)
[2017-04-08 20:12] LABS: BASOPHIL 0.8 % (0-2.0); EOSINOPHIL 1.9 % (0-4.5); MCH 26.8 pg (25.7-33.7); MCHC 33.8 g/dl (32.0-35.9); MEAN CELL VOLUME 79.4 fl (80-96); MEAN PLT VOLUME 9.2 fl (7.5-11.1); NEUTROPHILS 60.8 % (42.8-82.8); PLATELET COUNT 288 K/MM3 (134-434); RDW 12.6 % (11.9-15.9); WHITE BLOOD COUNT 10.2 K/mm3 (4.0-10.8)
--- NOTE | 2017-04-08 20:13 | PDOC ---
History of Present Illness - General Chief Complaint: Headache Stated Complaint: HEADACHE Time Seen by Provider: 04/08/17 19:16 - History of Present Illness Initial Comments: 04/08/17 20:07 "The patient is a 31 year old male with a significant past medical history of chronic back and neck pain (secondary to fall in 2014) who presents to the ED with complaints of a headache and chest pain x 1 day. The patient reports gradual onset of an intermittent frontal headache (5/10 in severity) around 11 am earlier today. He states the headache radiates across his forehead, the top of his head, his neck, and to his back. Patient notes he came into the ED around 1pm earlier today and was discharged with tylenol. He states he took the tylenol and his headache subsided completely for several hours, but patient states his headache has since returned. Pt denies N/V. Denies neck stiffness. Denies F/C. Denies weakness/numbness/tingling in any extremity. No thunderclap. No worst headache of life. Pt has had similar headaches in the past on multiple occasions. Patient also reports a sudden onset of left sided chest pain at home at approximately 2pm that lasted several seconds before subsiding completely. He has had this same chest pain on several occasions in the past. Patient states he had a stress test in the past that showed normal results. Denies fever or chills. Denies shortness of breath or cough. Denies focal numbness or weakness. Denies dysuria or changes in urinary output. Denies any other symptoms. Family hx: Patients father had a FL in his late 30s. Past History - Past Medical History Allergies/Adverse Reactions: Allergies Allergy/AdvReac Type Severity Reaction Status Date / Time No Known Allergies Allergy Verified 09/27/16 20:49 Home Medications: Ambulatory Orders Oxycodone HCl [Oxycodone HCl ER] 15 mg PO ASDIR PRN 05/25/16 Acetaminophen [Non-Aspirin Pain Relief] 1,000 mg PO ONCE 04/08/17 Gabapentin [Neurontin] 300 mg PO BID 04/08/17 Asthma: Yes (childhood) HTN: No Psychiatric Problems: Yes (DEPRESSION) Suicide Attempt (Hx): No - Immunization History Immunization Up to Date: Yes - Psycho/Social/Smoking Cessation Hx Anxiety: Yes Suicidal Ideation: No Smoking History: Never smoked Have you smoked in the past 12 months: No Hx Alcohol Use: No Drug/Substance Use Hx: No Substance Use Type: None Review of Systems - Review of Systems Comments:: 04/08/17 20:10 " GENERAL/CONSTITUTIONAL: No fever or chills. No weakness. HEAD, EYES, EARS, NOSE AND THROAT: No change in vision. No ear pain or discharge. No sore throat. CARDIOVASCULAR: + chest pain. No shortness of breath. RESPIRATORY: No cough, wheezing, or hemoptysis. GASTROINTESTINAL: No nausea, vomiting, diarrhea or constipation. GENITOURINARY: No dysuria, frequency, or change in urination. MUSCULOSKELETAL: No joint or muscle swelling or pain. No neck or back pain. SKIN: No rash NEUROLOGIC: + headache. No vertigo, loss of consciousness, or change in strength. ENDOCRINE: No increased thirst. No abnormal weight change. HEMATOLOGIC/LYMPHATIC: No anemia, easy bleeding, or history of blood clots. ALLERGIC/IMMUNOLOGIC: No hives or skin allergy." *Physical Exam - Vital Signs Last Vital Signs Temp Pulse Resp BP Pulse Ox 98.1 F 66 15 149/97 100 04/08/17 18:10 04/08/17 18:10 04/08/17 18:10 04/08/17 18:10 04/08/17 18:10 - Physical Exam Comments: 04/08/17 20:10 "GENERAL: Awake, alert, and fully oriented, in no acute distress HEAD: No signs of trauma EYES: PERRLA, EOMI, sclera anicteric, conjunctiva clear ENT: Auricles normal inspection, hearing grossly normal, nares patent, oropharynx clear without exudates. Moist mucosa NECK: Normal ROM, nontender, supple, no lymphadenopathy, JVD, or masses LUNGS: Breath sounds equal, clear to auscultation bilaterally. No wheezes, and no crackles HEART: Regular rate and rhythm, normal S1 and S2, no murmurs, rubs or gallops ABDOMEN: Soft, nontender, normoactive bowel sounds. No guarding, no rebound. No masses EXTREMITIES: Normal range of motion, no edema. No clubbing or cyanosis. No cords, erythema, or tenderness NEUROLOGICAL: Cranial nerves II through XII intact. 5/5 strength and sensation in all extremities. Normal speech, normal gait SKIN: Warm, Dry, normal turgor, no rashes or lesions noted. " Heart Score/ECG Review - History History: Slightly suspicious - Electrocardiogram EKG: Normal - Age Age: </= 45 - Risk Factors Risk Factors Heart Score: Yes Positive family hx of cardiac disease Based on the list above the patient has:: 1-2 risk factors - Troponin Troponin: </= normal limit - Score Heart Score - Total: 1 - ECG Impressions Comment:: 04/08/17 20:11 NSR, no DIANE/STDs, no TWIs, intervals wnl, axis wnl. ED Treatment Course - LABORATORY CBC & Chemistry Diagram: 04/08/17 19:45 04/08/17 19:45 - Medications Given in the ED: ED Medications Discontinued Medications Generic Name Dose Route Start Last Admin Trade Name Brigitte PRN Reason Stop Dose Admin Acetaminophen 1,000 mg 04/08/17 19:29 04/08/17 19:50 Ofirmev Injection - IVPB 04/08/17 19:30 1,000 mg ONCE ONE Administration Metoclopramide HCl 10 mg 04/08/17 19:29 04/08/17 19:45 Reglan Injection - IVPB 04/08/17 19:30 10 mg ONCE ONE Administration Medical Decision Making - Medical Decision Making 04/08/17 20:11 31 M with headache and transient chest pain. Pt neurologically intact with no red flags for SAH or meningitis. Likely migraine headache. No evidence of acute intracranial process on exam. Pt's chest pain is very atypical in nature, lasting only a few seconds. EKG completely normal. As chest pain occurred >6 hours ago, single trop should be sufficient to r/o FL. - Labs, trop - IVF, tylenol, reglan - Reassess 04/08/17 20:43 Labs wnl, Trop negative. Pt reassessed - reports resolution of headache. States he feels much better and would like to go home. Pt well appearing with no focal neuro deficits. Vitals stable. Clinically stable for DC. *DC/Admit/Observation/Transfer Diagnosis at time of Disposition: Headache - Discharge Dispostion Disposition: HOME Condition at time of disposition: Good - Patient Instructions Printed Discharge Instructions: DI for Headache Additional Instructions: Follow up with your primary care doctor within 1-2 weeks. Ask for a referral to a commercial lines account assistant to have your chest pain further evaluated. - Attestations Physician Attestion: 04/08/17 20:46 I, Dr. Chano Ibaenz MD, attest that this document has been prepared under my direction and personally reviewed by me in its entirety. I further attest, that it accurately reflects all work, treatment, procedures and medical decision -making performed by me.
[2017-04-08 20:28] LABS: ALBUMIN 4.7 g/dl (3.5-5.0); ALK PHOS 99 U/L (32-92); ANION GAP 11 (8-16); BILIRUBIN,TOTAL 0.9 mg/dl (0.2-1.0); CALCIUM 9.4 mg/dl (8.4-10.2); CO2 26 mmol/L (22-28); CPK 169 IU/L (39-308); CREATININE 0.7 mg/dl (0.6-1.3); GLUCOSE,RANDOM 91 mg/dl (74-106); SGOT/AST 31 U/L (10-42); SGPT/ALT 58 U/L (10-40); TOT PROT 7.9 g/dl (6.4-8.3)
[2017-04-08 20:39] LABS: TROPONIN I (DFP) < 0.03 ng/ml (0.03-0.50)
--- NOTE | 2017-04-10 10:24 | EKG ---
Test Reason : Blood Pressure : / mmHG Vent. Rate : 071 BPM Atrial Rate : 071 BPM P-R Int : 156 ms QRS Dur : 102 ms QT Int : 414 ms P-R-T Axes : 014 -14 012 degrees QTc Int : 449 ms NORMAL SINUS RHYTHM MINIMAL VOLTAGE CRITERIA FOR LVH, MAY BE NORMAL VARIANT WHEN COMPARED WITH ECG OF 27-SEP-2016 22:07, NO SIGNIFICANT CHANGE WAS FOUND Confirmed by MD CITLALI, ANABELLA ([id number]) on 04/10/2017 10:24:34 AM Referred By: PINKY Confirmed By:ANABELLA GODWIN MD
== END 2017-04-08 20:52 | disposition home or self-care (01) ==
LOC: FER 18:08
PROC: 3E033GC Introduction of Other Therapeutic Substance into Peripheral Vein, Percutaneous Approach (ICD-10-PCS; principal; 2017-04-08)
PROC: 3E0337Z Introduction of Electrolytic and Water Balance Substance into Peripheral Vein, Percutaneous Approach (ICD-10-PCS; 2017-04-08)
DX: R51 Headache (principal); M54.5 Low back pain; M54.2 Cervicalgia; G89.29 Other chronic pain
CPT/HCPCS: 36415; 80053; 82553; 84484; 85025; 93005; 99283-25

== ENCOUNTER 2017-09-11 12:11 | Emergency (ER) | payer OTHER ==
[2017-09-11 12:35] VITALS: BP 156/81; PULSE 73; TEMP 98; BMI 32.8
--- NOTE | 2017-09-11 12:50 | PDOC ---
History of Present Illness - General Chief Complaint: Pain Stated Complaint: chest soreness Time Seen by Provider: 09/11/17 12:32 - History of Present Illness Initial Comments: 09/11/17 13:43 31yo male presents ambulatory to the ED c/o feeling lightheaded in the car. States he started to feel nervous about feeling lightheaded and developed a burning sensation in his chest and nauseated. States he was driving home from his PMD - where he had labs drawn this am. States he did not eat or drink this AM. States all symptoms resolved at this time. Hx of HLD - not on meds. Hx of anxiety and chronic neuropathic pain. States he does get chronic shoulder and neck pain. No pedraza. No coughing. No blurred vision. No diaphoresis. No abd pain. No v/d. No dysuria. No new back or neck pain. Pt ambulated into the ED. Pt states symptoms are resolved. PMHx: chronic neck neuropathic pain, chronic shoulder pain, hx hld Allergies: NKDA Social: denies drugs, etoh, smoking Past History - Past Medical History Allergies/Adverse Reactions: Allergies Allergy/AdvReac Type Severity Reaction Status Date / Time No Known Allergies Allergy Verified 09/11/17 12:13 Home Medications: Ambulatory Orders Oxycodone HCl [Oxycodone HCl ER] 15 mg PO ASDIR PRN 05/25/16 Gabapentin [Neurontin] 300 mg PO BID 04/08/17 Asthma: Yes (childhood) COPD: No HTN: No Psychiatric Problems: Yes (DEPRESSION) Other medical history: pinched nerve to neck and back problems knee meniscus tear and left reagan - Immunization History Immunization Up to Date: Yes - Suicide/Smoking/Psychosocial Hx Smoking History: Never smoked Have you smoked in the past 12 months: No Information on smoking cessation initiated: No Hx Alcohol Use: No Drug/Substance Use Hx: No Substance Use Type: None Review of Systems - Review of Systems Able to Perform ROS?: Yes Is the patient limited Occitan proficient: No Constitutional: No: Chills, Fever HEENTM: No: Nose Pain, Nose Congestion, Throat Pain Respiratory: No: Cough, Shortness of Breath Cardiac (ROS): Yes: Chest Pain. No: Irregular Heart Rate, Palpitations ABD/GI: Yes: Nausea. No: Diarrhea, Vomiting : No: Burning, Dysuria Musculoskeletal: No: Back Pain, Neck Pain Integumentary: No: Rash Neurological: Yes: Dizziness. No: Headache, Numbness, Paresthesia Psychiatric: Yes: Anxiety All Other Systems: Reviewed and Negative *Physical Exam - Vital Signs Last Vital Signs Temp Pulse Resp BP Pulse Ox 98 F 73 20 156/81 100 09/11/17 12:13 09/11/17 12:13 09/11/17 12:13 09/11/17 12:13 09/11/17 12:13 - Physical Exam General Appearance: Yes: Nourished, Appropriately Dressed. No: Apparent Distress HEENT: positive: EOMI, BULL, Pharynx Normal Neck: positive: Trachea midline, Supple, Other (no midline ttp, no vertebral ttp ) Respiratory/Chest: positive: Lungs Clear, Normal Breath Sounds. negative: Chest Tender, Respiratory Distress, Accessory Muscle Use Cardiovascular: positive: Regular Rhythm, Regular Rate, S1, S2. negative: Edema Gastrointestinal/Abdominal: positive: Normal Bowel Sounds, Flat, Soft. negative : Guarding, Rebound, Tenderness Musculoskeletal: negative: Normal Inspection, CVA Tenderness Extremity: positive: Normal Capillary Refill, Normal Inspection, Normal Range of Motion Integumentary: positive: Normal Color, Dry, Warm. negative: Rash Neurologic: positive: heating and ventilation engineer II-XII NML intact, Fully Oriented, Alert, Normal Mood/ Affect, Normal Response, Motor Strength 5/5, Other (ambulatory with a steady gait) Heart Score/ECG Review - ECG Intrepretation Comment:: 09/11/17 13:49 sinus at 64, nl axis, nl interval, t wave inversions III which are nonspecific, unchanged from prior Medical Decision Making - Medical Decision Making 09/11/17 13:49 a/p: 31yo male with atypical cp/lightheaded after having blood drawn and being NPO -suspect most likely vasovagal reaction -will give po challenge and medicate for burning sensation in chest -will obtain ekg -pt nontoxic in appearance -all symptoms resolved -outpt stress within last 6 months is negative -had normal physical with PMD this AM 09/11/17 13:52 after being medicated, pt at the desk requesting to go home with his coat on states he is feeling better 09/11/17 13:52 discussed EKG findings, pt stable for d/c to home states he has been on a diet to lose wt and is only eating 1 real meal and 1 snack a day discussed healthy eating styles - 3 well balanced meals a day suspect lightheaded from NPO and blood draw and cp secondary to anxiety neuro intact stable for d/c to home *DC/Admit/Observation/Transfer Diagnosis at time of Disposition: Lightheaded, Acute stress reaction, Atypical chest pain - Discharge Dispostion Disposition: HOME Condition at time of disposition: Stable Admit: No - Referrals Referrals: Carson Corral MD [Staff Physician] - - Patient Instructions Printed Discharge Instructions: DI for Atypical Chest Pain Additional Instructions: Please follow up with your PMD for your lab results. Please eat 3 well balanced healthy meals a day. Please drink plenty of fluids and water. Please return to the ED if symptoms worsen. - Post Discharge Activity
[2017-09-11] MEDS ORDERED: IBUPROFEN 600 MG TABLET (FP) PO ONE ×2 (13:26→13:30)
[2017-09-11] MEDS ORDERED: MAG HYDROX/AL HYDROX/SIMETH 30 ML UNIT-DOSE CUP PO ONE (13:26)
[2017-09-11] MEDS ORDERED: ONDANSETRON *ODT* 4 MG TABLET SL ONE (13:26)
[2017-09-11] MEDS ORDERED: ONDANSETRON *ODT* 4 MG TABLET ONE (13:30)
[2017-09-11] MEDS ORDERED: MAG HYDROX/AL HYDROX/SIMETH 30 ML UNIT-DOSE CUP ONE (13:30)
--- NOTE | 2017-09-13 10:49 | EKG ---
Test Reason : Blood Pressure : / mmHG Vent. Rate : 064 BPM Atrial Rate : 064 BPM P-R Int : 146 ms QRS Dur : 102 ms QT Int : 402 ms P-R-T Axes : 017 -19 006 degrees QTc Int : 414 ms NORMAL SINUS RHYTHM NORMAL ECG WHEN COMPARED WITH ECG OF 08-APR-2017 20:01, NO SIGNIFICANT CHANGE WAS FOUND Confirmed by PAN HOFFMAN MD ([id number]) on 09/13/2017 10:49:20 AM Referred By: JONES Confirmed By:PAN HOFFMAN MD
== END 2017-09-11 14:00 | disposition home or self-care (01) ==
LOC: FER 12:11
DX: F43.9 Reaction to severe stress, unspecified (principal); R42 Dizziness and giddiness; R07.89 Other chest pain; F32.9 Major depressive disorder, single episode, unspecified
CPT/HCPCS: 93005; 99283-25

== ENCOUNTER 2017-11-15 10:34 | Emergency (ER) | payer OTHER ==
[2017-11-15 10:43] VITALS: BP 130/90; PULSE 68; TEMP 98.5; BMI 29.5
--- NOTE | 2017-11-15 10:58 | PDOC ---
History of Present Illness - General Chief Complaint: Pain Stated Complaint: FACE TINGLING, CHEST SORENESS Time Seen by Provider: 11/15/17 10:58 History Source: Patient Exam Limitations: No Limitations - History of Present Illness Initial Comments: 11/15/17 11:15 Pt presents to the ED complaining of a one week history of intermittent facial twitching that lasts seconds. Denies facial weakness or numbness. Denies difficulty walking or speaking. He is also complaining of intermittent chest pain that lasts seconds, is non exertional and described as a pinching sensation that moves around his chest. Denies nausea, vomiting, lightheadness or shortness of breath. Denies current chest pain. No prior cardiac history. Past History - Past Medical History Allergies/Adverse Reactions: Allergies Allergy/AdvReac Type Severity Reaction Status Date / Time No Known Allergies Allergy Verified 11/15/17 10:46 Home Medications: Ambulatory Orders NK [No Known Home Medication] 11/15/17 Asthma: Yes (childhood) COPD: No HTN: No Psychiatric Problems: Yes (DEPRESSION) - Immunization History Immunization Up to Date: Yes - Suicide/Smoking/Psychosocial Hx Smoking History: Never smoked Have you smoked in the past 12 months: No Hx Alcohol Use: No Drug/Substance Use Hx: No Substance Use Type: None *Physical Exam - Vital Signs Last Vital Signs Temp Pulse Resp BP Pulse Ox 98.5 F 68 16 130/90 100 11/15/17 10:35 11/15/17 10:35 11/15/17 10:35 11/15/17 10:35 11/15/17 10:35 *DC/Admit/Observation/Transfer Diagnosis at time of Disposition: Skin sensation disturbance - Discharge Dispostion Disposition: HOME Condition at time of disposition: Good Admit: No - Referrals Referrals: Wellington Colunga MD [Primary Care Provider] - - Patient Instructions Printed Discharge Instructions: DI for Atypical Chest Pain Additional Instructions: return to the ED for new or changing symptoms. Make sure that you follow up with your doctor. - Post Discharge Activity
--- NOTE | 2017-11-17 08:50 | EKG ---
Test Reason : Blood Pressure : / mmHG Vent. Rate : 062 BPM Atrial Rate : 062 BPM P-R Int : 140 ms QRS Dur : 100 ms QT Int : 398 ms P-R-T Axes : 029 -07 031 degrees QTc Int : 403 ms NORMAL SINUS RHYTHM NORMAL ECG WHEN COMPARED WITH ECG OF 11-SEP-2017 12:49, NO SIGNIFICANT CHANGE WAS FOUND Confirmed by COLLEEN JADE MD ([id number]) on 11/17/2017 8:50:16 AM Referred By: MD DUARTE Confirmed By:COLLEEN JADE MD
== END 2017-11-15 11:19 | disposition home or self-care (01) ==
LOC: FER 10:34
DX: R20.8 Other disturbances of skin sensation (principal); F32.9 Major depressive disorder, single episode, unspecified
CPT/HCPCS: 93005; 99282-25

== ENCOUNTER 2018-07-29 11:47 | Emergency (ER) | payer SELFPAY ==
[2018-07-29 12:42] VITALS: BP 128/83; PULSE 74; TEMP 98.3; BMI 29.5
--- NOTE | 2018-07-29 13:24 | PDOC ---
History of Present Illness - General Chief Complaint: Lethargy Stated Complaint: COLD FEET AND TIREDNESS Time Seen by Provider: 07/29/18 12:36 History Source: Patient Exam Limitations: No Limitations - History of Present Illness Initial Comments: 07/29/18 13:19 32 yo male with h/o chronic neck and back pain. follows with a primary and nuerologist whom he saw one week ago, here with c/o cold feet. states when he is lying in bed at night and in the mornign he has cold feet. no numbness no lower ext weakness. 3 weeks ago had episode where he felt off balance for few days and had a fall while working at [employer]. since no issues with his balance. has had an mri of his spine, last few years ago. no bowel or bladder incontinence. no other current complaints. Past History - Past Medical History Allergies/Adverse Reactions: Allergies Allergy/AdvReac Type Severity Reaction Status Date / Time No Known Allergies Allergy Verified 11/15/17 10:46 Home Medications: Ambulatory Orders Meloxicam 15 mg PO DAILY PRN 07/29/18 Oxycodone HCl 15 mg PO QID PRN 07/29/18 Asthma: Yes (childhood) COPD: No HTN: No Psychiatric Problems: Yes (DEPRESSION) - Immunization History Immunization Up to Date: Yes - Suicide/Smoking/Psychosocial Hx Smoking History: Never smoked Have you smoked in the past 12 months: No Hx Alcohol Use: No Drug/Substance Use Hx: No Substance Use Type: None Review of Systems - Review of Systems Constitutional: No: Chills, Diaphoresis, Fever HEENTM: No: Eye Pain, Blurred Vision Respiratory: No: Cough, Orthopnea, Shortness of Breath Musculoskeletal: Yes: Other (cold feet) Integumentary: No: Bruising, Change in Color Neurological: Yes: Unsteady Gait. No: Headache, Numbness, Paresthesia All Other Systems: Reviewed and Negative *Physical Exam - Vital Signs Last Vital Signs Temp Pulse Resp BP Pulse Ox 98.3 F 74 16 128/83 100 07/29/18 11:49 07/29/18 11:49 07/29/18 11:49 07/29/18 11:49 07/29/18 11:49 - Physical Exam Comments: 07/29/18 13:21 awake alert lungs clear bilaterally heart rrr no mrg abd soft nt nd. ext wwp no edema. 2 + symmetric dp and pt pulses bilaterally. heart rrr no mrg abd soft nt nd. strength lower ext 5/5. sensation intact throughout. no midline spinal tenderness. Moderate Sedation - Procedure Monitoring Vital Signs: Procedure Monitoring Vital Signs Temperature 98.3 F 07/29/18 11:49 Pulse Rate 74 07/29/18 11:49 Respiratory Rate 16 07/29/18 11:49 Blood Pressure 128/83 07/29/18 11:49 O2 Sat by Pulse Oximetry (%) 100 07/29/18 11:49 Medical Decision Making - Medical Decision Making 07/29/18 13:22 pt c/o cold feet. good perfusion and pulses bilat feet. normal nuerological exam lower ext. receommend repeat evaluation with pcp who is a nuerologist and outpt mri. pt told to schedule. *DC/Admit/Observation/Transfer Diagnosis at time of Disposition: Paresthesia - Discharge Dispostion Disposition: HOME Condition at time of disposition: Improved - Referrals Referrals: Wellington Colunga MD [Primary Care Provider] - - Patient Instructions Printed Discharge Instructions: [facility] Additional Instructions: you should follow up with your primary doctor. you should discuss with your doctor for an outpatient MRI of lower back if you continue to have sensations of tingling or coldness to your feet. you may also consider followup with a producer director. d/w your primary doctor. you can return for any problems or concerns. - Post Discharge Activity
== END 2018-07-29 13:34 | disposition home or self-care (01) ==
LOC: FER 11:47
DX: R20.2 Paresthesia of skin (principal); R20.8 Other disturbances of skin sensation; G89.29 Other chronic pain; F32.9 Major depressive disorder, single episode, unspecified
CPT/HCPCS: 99283-25

== ENCOUNTER 2019-08-30 09:00 | Emergency (ER) | payer OTHER ==
--- NOTE | 2019-08-30 09:08 | PDOC ---
History of Present Illness - General Chief Complaint: Pain Stated Complaint: LEFT KNEE, LEFT ANKLE PAIN Time Seen by Provider: 08/30/19 09:02 - History of Present Illness Initial Comments: 08/30/19 09:44 33yo male with chronic neck pain from herniated discs presents for eval of knee pain. Pt states he was sitting in class taking notes on when he felt a "twinge" of pain to the anterior aspect of the knee. States when he stood up he felt pain down his calf to his achilles and then tingling into the toes. Pt denies back pain. Denies trauma. Denies falls. Denies recent travel. Denies swelling. Denies effusions. Pt denies prior episodes of prior. No cp/sob. No f/ c. No rashes. No bug bites. No penile complaints. Pt states he tried rubbing muscle cream on the knee without any relief of pain. No oral meds tried. 08/30/19 09:46 PMHx: chronic neck neuropathic pain, chronic shoulder pain, hx hld Pshx: hernia repair Allergies: NKDA Social: denies drugs, etoh, smoking Past History - Past Medical History Allergies/Adverse Reactions: Allergies Allergy/AdvReac Type Severity Reaction Status Date / Time No Known Allergies Allergy Verified 08/30/19 09:03 Home Medications: Ambulatory Orders NK [No Known Home Medication] 08/30/19 Asthma: Yes (childhood) COPD: No HTN: No Psychiatric Problems: Yes (DEPRESSION) - Immunization History Immunization Up to Date: Yes - Psycho Social/Smoking Cessation Hx Smoking History: Never smoked Have you smoked in the past 12 months: No Hx Alcohol Use: No Drug/Substance Use Hx: No Substance Use Type: None Review of Systems - Review of Systems Able to Perform ROS?: Yes Is the patient limited Faroese proficient: No Constitutional: No: Chills, Fever HEENTM: No: Eye Pain Respiratory: No: Cough, Shortness of Breath Cardiac (ROS): No: Chest Pain, Irregular Heart Rate, Palpitations, Chest Tightness ABD/GI: No: Diarrhea, Nausea, Vomiting, Abdominal cramping : No: Dysuria, Discharge, Testicular Pain Musculoskeletal: Yes: Joint Pain (L knee pain). No: Back Pain, Joint Swelling, Muscle Pain, Muscle Weakness, Joint Stiffness Integumentary: No: Bruising, Erythema, Rash Neurological: No: Headache, Numbness, Paresthesia, Weakness, Ataxia All Other Systems: Reviewed and Negative *Physical Exam - Vital Signs 08/30/19 09:49 Selected Entries 08/30/19 09:00 Temperature 97.8 F Pulse Rate 60 Respiratory 18 Rate Blood Pressure 122/80 Blood Pressure 94 Mean O2 Sat by Pulse 100 Oximetry (%) Weight 99.79 kg - Physical Exam General Appearance: Yes: Nourished, Appropriately Dressed. No: Apparent Distress HEENT: positive: EOMI, Normal Voice Neck: positive: Supple Respiratory/Chest: positive: Lungs Clear, Normal Breath Sounds. negative: Respiratory Distress Cardiovascular: positive: Regular Rhythm, Regular Rate, S1, S2. negative: Edema Gastrointestinal/Abdominal: positive: Soft. negative: Guarding, Rebound, Tenderness Musculoskeletal: positive: Normal Inspection. negative: Decreased Range of Motion Extremity: positive: Normal Capillary Refill, Normal Inspection, Other (L lateral knee superior aspect of the patella with ttp, FROM of the knee, no effusion palpated, posterior knee mild ttp, no calf ttp, achilles intact, sensaton intact, muscle strength intact, pulses intact distal, brisk cap refill) . negative: Swelling, Calf Tenderness, Inflammation Integumentary: positive: Normal Color, Dry, Warm. negative: Rash, Swelling, Ecchymosis Neurologic: positive: Fully Oriented, Normal Mood/Affect, Motor Strength 5/5, Other (ambulatory with a steady gait) Medical Decision Making - Medical Decision Making 08/30/19 09:50 a/p: 33yo male with L knee pain since -pt did not try any meds at home -no effusions, no erythema, no warmth, no ttp -slightly limited ROM secondary to pain -posterior knee mild ttp -poss internal derangement of the knee, but no trauma hx -no signs of septic knee -no rashes -achilles intact -will give motrin, knee xray, ultrasound - poss bakers cyst -will monitor and reassess -will need orthopedic follow up if pain continues 08/30/19 10:06 knee xray without acute findings ultrasound neg for dvt 08/30/19 10:32 no dvt discussed imaging with the patient discussed follow up and poss dx answered all questions pt stable for dc to home Discharge - Discharge Information Problems reviewed: Yes Clinical Impression/Diagnosis: Left knee pain Condition: Stable Disposition: HOME - Admission No - Follow up/Referral Referrals: Wellington Colunga MD [Primary Care Provider] - Leonidas Deleon DO [Staff Physician] - Chano Rodriguez MD [Staff Physician] - Osmany Hinkle MD [Staff Physician] - - Patient Discharge Instructions Patient Printed Discharge Instructions: DI for Knee Pain Additional Instructions: Please take ibuprofen or tylenol as needed for pain. Please ice the knee- 20 min on and 20 min off. Please make an appointment to see the orthopedist in 2-3 days. Please return to the ER with any further concerns or complaints. - Post Discharge Activity
[2019-08-30 09:11] VITALS: BP 122/80; PULSE 60; TEMP 97.8; BMI 32.5
[2019-08-30] MEDS ORDERED: IBUPROFEN 600 MG TABLET (FP) PO ONE ×2 (09:16→09:18)
== END 2019-08-30 10:45 | disposition home or self-care (01) ==
LOC: FER 09:00
DX: M25.562 Pain in left knee (principal); G89.29 Other chronic pain; M54.2 Cervicalgia
CPT/HCPCS: 73562-TC-LT-FY; 93971-TC; 99283-25

== ENCOUNTER 2020-05-02 05:40 | Emergency (ER) | payer OTHER ==
[2020-05-02 05:48] VITALS: BP 124/82; PULSE 57; TEMP 98.6; BMI 32.5
--- NOTE | 2020-05-02 05:48 | PDOC ---
History of Present Illness - General Chief Complaint: Ear Problem Stated Complaint: BILATERAL EAR PAIN Time Seen by Provider: 05/02/20 05:46 - History of Present Illness Initial Comments: 05/02/20 06:41 This 34-year-old man without significant past medical history presents with a 3- day history of bilateral ear pain and 2-day history of sore throat. No fever/chills/runny nose/cough. No known direct contact with anyone else with sore throat/ear pain. Patient had strep throat as a child but no episodes as an adult. Patient has not taken any medications for his complaints yet. No recent travel Patient has school-aged children (5 and 8) but they have no complaints currently On no daily medications No known allergies Non-smoker/no daily alcohol or other recreational drug use Past History - Medical History Allergies/Adverse Reactions: Allergies Allergy/AdvReac Type Severity Reaction Status Date / Time No Known Allergies Allergy Verified 08/30/19 09:03 Home Medications: Ambulatory Orders NK [No Known Home Medication] 08/30/19 Asthma: Yes (childhood) COPD: No HTN: No Psychiatric Problems: Yes (DEPRESSION) - Immunization History Immunization Up to Date: Yes - Psycho-Social/Smoking History Smoking History: Never smoked Have you smoked in the past 12 months: No Review of Systems - Review of Systems Able to Perform ROS?: Yes Comments:: 12 point review of systems is negative except for what is noted in the history of present illness *Physical Exam - Vital Signs Last Vital Signs Temp Pulse Resp BP Pulse Ox 98.6 F 57 L 16 124/82 100 05/02/20 05:41 05/02/20 05:41 05/02/20 05:41 05/02/20 05:41 05/02/20 05:41 - Physical Exam GENERAL: Adult male, alert and oriented x3 in no acute distress HEAD: Normal with no signs of trauma. EYES: PERRLA, EOMI, sclera anicteric, conjunctiva clear. ENT: Ears normal, nares patent, oropharynx moderately erythematous without exudates or masses NECK: Normal range of motion, supple, JVD, or masses. Mildly tender anterior cervical lymphadenopathy bilaterally LUNGS: Breath sounds equal, clear to auscultation bilaterally. No wheezes, and no crackles. HEART:Regular rate and rhythm, normal S1 and S2 without murmur, rub or gallop. NEUROLOGICAL: Cranial nerves II through XII grossly intact. Normal speech. No focal neurological deficits. SKIN: Warm, Dry, normal turgor, no rashes or lesions noted. Medical Decision Making - Medical Decision Making This otherwise healthy 34-year-old man presents with a few day history of bilateral ear pain and sore throat without fever or associated symptoms. Exam notable for normal ears bilaterally without evidence of acute otitis media or otitis externa. Pharynx is erythematous without masses or exudates. There are scattered mildly tender anterior cervical lymph nodes that are moderately enlarged. Remainder the exam is normal Throat swab obtained for throat culture Clinical presentation most consistent with acute pharyngitis perhaps coupled with Eustachian tube dysfunction and middle ear effusion. Treatment with antihistamine/decongestant combination suggested to the patient along with plenty of fluids and rest. He also has not been taking any analgesic/anti- inflammatory medications and these have been suggested also. He will be contacted if throat culture is positive and antibiotic course will be sent to his pharmacy. He should return to the emergency room if he has severe symptoms but follow-up with his general doctor within the next week Discharge - Discharge Information Problems reviewed: Yes Clinical Impression/Diagnosis: Acute pharyngitis Qualifiers: Pharyngitis/tonsillitis etiology: other specified organisms Qualified Code(s): J02.8 - Acute pharyngitis due to other specified organisms Condition: Stable Disposition: HOME - Follow up/Referral Referrals: Wellington Colunga MD [Primary Care Provider] - - Patient Discharge Instructions Patient Printed Discharge Instructions: DI for Pharyngitis/Tonsillopharyngitis -- Adult Additional Instructions: Rest; drink plenty of fluids Claritin-D, as directed, during daytime hours Can use Motrin/Aleve/Tylenol as needed for ear pain Return to ER if you have severe symptoms We will contact you if throat culture is positive for strep and will prescribe antibiotics Follow-up with your general medical doctor within 1 week - Post Discharge Activity
--- OUTSIDE RECORDS SUMMARY | 2020-05-02 05:55 | XMS ---
:1985 [facility] Support Name Relationship Address Phone UE Unavailable Unavailable Unavailable ANGELA SEO PARTNER [address] [facility] [place] [address] [address] [facility] [address] LEILA HUBER Parent [address] [facility] [place] [address] Re-disclosure Warning The records that you are about to access may contain information from federally- assisted alcohol or drug abuse programs. If such information is present, then the following federally mandated warning applies: This information has been disclosed to you from records protected by federal confidentiality rules (42 CFR part 2). The federal rules prohibit you from making any further disclosure of this information unless further disclosure is expressly permitted by the written consent of the person to whom it pertains or as otherwise permitted by 42 CFR part 2. A general authorization for the release of medical or other information is NOT sufficient for this purpose. The Federal rules restrict any use of the information to criminally investigate or prosecute any alcohol or drug abuse patient.The records that you are about to access may contain highly sensitive health information, the redisclosure of which is protected by Article 27-F of the [facility] Public Health law. If you continue you may haveaccess to information: Regarding HIV / AIDS; Provided by facilities licensed or operated by the [facility] Office of Mental Health; or Provided by the [facility] Office for People With Developmental Disabilities. If such information is present, then the following [facility] mandated warning applies: This information has been disclosed to you from confidential records which are protected by state law. State law prohibits you from making any further disclosure of this information without the specific written consent of the person to whom it pertains, or as otherwise permitted by law. Any unauthorized further disclosure in violation of state law may result in a fine or assisted sentence or both. A general authorization for the release of medical or other information is NOT sufficient authorization for further disclosure. Insurance Providers Payer name Policy type Policy ID Covered Covered green party's Policy P agustín / Coverage green party ID relationship to [employer] ormation type tomas SELF PAY INSURANCE HIP MEDICARE [id number] SP [id number] VIP HIP MEDICARE [id number] SP [id number] VIP MEDICAID [id number] SP [id number] [facility] [id number] [facility] [id number] SP [id number] [facility] MEDICAID [id number] SP [id number] [employer] MEDICAID [id number] SP [id number] [employer] MEDICAID [id number] SP [id number] [employer] [place] [id number] SP [id number] HEALTHCARE (MEDICARE)
== END 2020-05-02 06:44 | disposition home or self-care (01) ==
LOC: FER 05:40
DX: J02.8 Acute pharyngitis due to other specified organisms (principal)
CPT/HCPCS: 87070; 99282-25

== ENCOUNTER 2020-09-14 09:37 | Emergency (ER) | payer OTHER ==
[2020-09-14 09:53] VITALS: BP 132/77; PULSE 70; TEMP 98.4; BMI 28.0
== END 2020-09-14 10:57 | disposition home or self-care (01) ==
LOC: FER 09:37
DX: S93.602A Unspecified sprain of left foot, initial encounter (principal)
CPT/HCPCS: 73630-TC-LT; 99284-25

== ENCOUNTER 2021-05-11 19:50 | Emergency (ER) | payer OTHER ==
[2021-05-11 20:10] VITALS: BP 132/98; PULSE 91; TEMP 98; BMI 35.4
[2021-05-11] MEDS ORDERED: KETOROLAC TROMETHAMINE 15 MG/ML VIAL IM ONE (20:21)
[2021-05-11] MEDS ORDERED: KETOROLAC TROMETHAMINE 30 MG/1 ML VIAL ONE (20:22)
== END 2021-05-11 20:40 | disposition home or self-care (01) ==
LOC: FER 19:50
PROC: 3E0233Z Introduction of Anti-inflammatory into Muscle, Percutaneous Approach (ICD-10-PCS; principal; 2021-05-11)
DX: K08.89 Other specified disorders of teeth and supporting structures (principal)
CPT/HCPCS: 99283-25

== ENCOUNTER 2023-04-30 20:53 | Emergency (ER) | payer OTHER ==
[2023-04-30 21:11] VITALS: BP 124/85; PULSE 74; RESP 19; TEMP 99; BMI 35.4
[2023-04-30] MEDS ORDERED: CYCLOBENZAPRINE HCL 10 MG TABLET (FP) PO ONE (23:27)
[2023-04-30] MEDS ORDERED: CYCLOBENZAPRINE HCL 5 MG TABLET ONE (23:30)
== END 2023-04-30 23:59 | disposition home or self-care (01) ==
LOC: FER 20:53
DX: M54.2 Cervicalgia (principal); S16.1XXA Strain of muscle, fascia and tendon at neck level, initial encounter; S90.31XA Contusion of right foot, initial encounter; V49.40XA Driver injured in collision with unspecified motor vehicles in traffic accident, initial encounter; Y92.410 Unspecified street and highway as the place of occurrence of the external cause
CPT/HCPCS: 72050-TC-FY; 73630-TC-RT-FY; 99284-25

== ENCOUNTER 2024-08-26 21:32 | Emergency (ER) | payer OTHER ==
[2024-08-26 22:09] VITALS: BP 147/95; PULSE 76; RESP 16; TEMP 98.6; BMI 40.6
== END 2024-08-26 23:16 | disposition home or self-care (01) ==
LOC: FER 21:32
DX: N20.0 Calculus of kidney (principal); R35.0 Frequency of micturition; R10.9 Unspecified abdominal pain
CPT/HCPCS: 74176-TC; 81003; 81015; 87086; 99284-25

== ENCOUNTER 2024-09-15 20:16 | Emergency (ER) | payer OTHER ==
[2024-09-15 20:49] VITALS: BP 129/74; PULSE 84; RESP 16; TEMP 100.2; BMI 34.9
== END 2024-09-15 21:15 | disposition home or self-care (01) ==
LOC: FER 20:16
DX: J10.1 Influenza due to other identified influenza virus with other respiratory manifestations (principal); M79.10 Myalgia, unspecified site; R50.9 Fever, unspecified; Z20.822 Contact with and (suspected) exposure to COVID-19
CPT/HCPCS: 0241U-QW; 99283-25

== ENCOUNTER 2025-03-31 09:39 | Emergency (ER) | payer OTHER ==
[2025-03-31 10:22] VITALS: BP 124/90; PULSE 65; RESP 65; TEMP 98.4; BMI 34.0
[2025-03-31] MEDS: ACETAMINOPHEN 500 MG TABLET (FP) PO ONE (11:03)
[2025-03-31] MEDS ORDERED: ACETAMINOPHEN 500 MG TABLET (FP) ONE (11:03)
[2025-03-31 13:39] LABS: HIV INTERPRETATION NEGATIVE (NEGATIVE)
[2025-03-31 13:41] LABS: HCV DIAGNOSTIC IN-HOUSE W/RFLX NON-REACTIVE (NONREACTIVE)
== END 2025-03-31 12:05 | disposition home or self-care (01) ==
LOC: FER 09:39
DX: M54.2 Cervicalgia (principal)
CPT/HCPCS: 36415; 86803; 87389; 99283-25